=== PATIENT | female | born 1990 | race Caucasian/White ===

== ENCOUNTER → 2019-04-14 | Outpatient (CLI) | payer OTHER | LOC: BHSO 15:44 | DX: F41.1 Generalized anxiety disorder (principal) ==

== ENCOUNTER → 2019-07-23 | Outpatient (CLI) | payer OTHER | LOC: BHSO 13:59 | DX: F33.1 Major depressive disorder, recurrent, moderate (principal) ==

== ENCOUNTER → 2019-08-06 | Outpatient (CLI) | payer OTHER | LOC: BHSO 13:54 | DX: F41.1 Generalized anxiety disorder (principal) ==

== ENCOUNTER → 2019-09-04 | Outpatient (CLI) | payer OTHER | LOC: BHSO 09:04 | DX: F41.1 Generalized anxiety disorder (principal) ==